=== PATIENT | male | born 1990 | race Two or more races ===

== ENCOUNTER 2020-10-16 09:20 | Emergency (ER) | payer BC ==
--- NOTE | 2020-10-16 10:35 | EDM.PDOC ---
ED HPI GENERAL MEDICAL PROBLEM - General Chief Complaint: Abdominal Pain Stated Complaint: KIDNEY PAIN AND SOB Time Seen by Provider: 10/16/20 10:31 Source of Information: Reports: Patient History Limitations: Reports: No Limitations - History of Present Illness INITIAL COMMENTS - FREE TEXT/NARRATIVE: 29-year-old male presents to the ED with complaints of bilateral flank pain but much worse on the left as compared to the right. No change in color of his urine. He reports it is difficult to get in and out of the vehicle. It is difficult to get in and out of bed. It is difficult to take a full deep breath without muscle spasm occurring. He denies fever or chills. No problems voiding. He does workout with weights in the gym. Last he can remember he was doing shoulder shrugs with dumbbells. He does not do heavy lifting in the work place I works in the [employer]. Cannot think of any repetitive twisting movements as of late. Onset: Gradual Onset Date: 10/14/20 Duration: Day(s):, Constant Location: Reports: Back (Left mid lower back.) Quality: Reports: Ache, Throbbing Severity: Moderate (Worsened by deep breathing and bending forwards.) Improves with: Reports: Rest Worsens with: Reports: Other Context: Reports: Other (Likely related to weight lifting in the gym 2 days prior to development of the back pain). Denies: Activity (Worsens by bending forwards or deep breathing or coughing.), Exercise, Lifting, Sick Contact, Trauma Associated Symptoms: Reports: No Other Symptoms. Denies: Confusion, Chest Pain, Cough, cough w sputum, Diaphoresis, Fever/Chills, Headaches, Loss of Appetite, Malaise, Nausea/Vomiting, Rash, Seizure, Shortness of Breath, Syncope Treatments PAN PULLER: Reports: Acetaminophen Left Flank Pain Score (Numeric/FACES): 8 - Related Data Allergies Allergy/AdvReac Type Severity Reaction Status Date / Time No Known Allergies Allergy Verified 10/16/20 09:31 Home Meds: Home Meds Diclofenac Sodium [Voltaren] 75 mg PO BIDMEALS #10 tab.cr 10/16/20 [Rx] predniSONE 20 mg PO BID #8 tab 10/16/20 [Rx] Past Medical History - Past Health History Medical/Surgical History: Denies Medical/Surgical History Social & Family History - Tobacco Use Tobacco Use Status *Q: Never Tobacco User Second Hand Smoke Exposure: No - Caffeine Use Caffeine Use: Reports: Energy Drinks - Recreational Drug Use Recreational Drug Use: No - Living Situation & Occupation Living situation: Reports: Single Occupation: Employed ED ROS GENERAL - Review of Systems Review Of Systems: See Below Constitutional: Denies: Fever, Chills, Malaise, Weakness, Fatigue HEENT: Reports: No Symptoms Respiratory: Reports: No Symptoms Cardiovascular: Reports: No Symptoms Endocrine: Reports: No Symptoms GI/Abdominal: Reports: No Symptoms : Reports: No Symptoms Musculoskeletal: Reports: Back Pain Skin: Reports: No Symptoms (Left lower back pain brought him to the ED today.) Neurological: Reports: No Symptoms Psychiatric: Reports: No Symptoms Hematologic/Lymphatic: Reports: No Symptoms ED EXAM,LOWER BACK PAIN/INJURY - Physical Exam Exam: See Below Exam Limited By: No Limitations General Appearance: Alert, WD/WN, No Apparent Distress, Other (Temperature is 36.7 degrees. Heart rate 80 and sinus. Respiratory is 20. BP 06/06/1978. Pulse ox 97% room air.) Eye Exam: Bilateral Eye: Normal Inspection Respiratory/Chest: No Respiratory Distress, Lungs Clear, Normal Breath Sounds, No Accessory Muscle Use Cardiovascular: Normal Peripheral Pulses, Regular Rate, Rhythm, No Edema, No Gallop, No Murmur, No Rub GI/Abdominal: Normal Bowel Sounds, Soft, No Organomegaly, No Abnormal Bruit, No Mass, Pelvis Stable, Other (Well muscled abdominal wall.) (Male) Exam: No Hernia Back Exam: Muscle Spasm (Left mid lower back over the distribution of the quadratus lumborum muscle.), Other (Examination of his back reveals pain lateral to the lower thoracic and upper lumbar spine. This is in the distribution of the quadratus lumborum muscle. There is muscle spasm with tenderness to palpation on the left side nothing identified on the right.) Extremities: Normal Inspection, Normal Range of Motion, Non-Tender, No Pedal Edema Neurological: Alert, Normal Mood/Affect, Normal Dorsiflexion, CN II-XII Intact, Normal Plantar Flexion, Normal Gait, Normal Reflexes Psychiatric: Normal Affect, Normal Mood Skin Exam: Warm, Dry, Intact, Normal Color Course - Vital Signs Last Recorded V/S: Last Vital Signs Temp 36.7 C 10/16/20 09:30 Pulse 80 10/16/20 09:30 Resp 20 10/16/20 09:30 BP 130/79 10/16/20 09:30 Pulse Ox 97 10/16/20 09:30 - Radiology Interpretation Free Text/Narrative:: 29-year-old male presents to the ED for evaluation of low back pain. He felt initially both sides but is worse on the left as compared to the right. He states it is made worse by deep breathing. It is made worse by lying down and trying to get back up from the lying down position where is trying to get in and out of a vehicle. 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 Cannot think of any repetitive workload over the last for 5 days that would have caused back strain. He also works out at the gym. Last workout included shoulder shrugs using dumbbells. Examination reveals spasm of the left lateral lower back muscles primarily of the quadratus lumborum muscle. There is no paraspinal muscle spasm no facet joint or rib head subluxation identified. Peers to be a straightforward muscle strain likely from workout in the gym. Treatment at this time is Voltaren 75 mg slow release twice daily for the next 5 days. Prednisone 20 mg twice daily breakfast and supper for 4 days. He may continue to work although with limited pushing pulling lifting and carrying. Departure - Departure Time of Disposition: 10:31 Disposition: Home, Self-Care 01 Condition: Fair Clinical Impression: Strain of muscle, fascia and tendon of lower back, initial encounter - Discharge Information *PRESCRIPTION DRUG MONITORING PROGRAM REVIEWED*: Not Applicable *COPY OF PRESCRIPTION DRUG MONITORING REPORT IN PATIENT TERESSA: Not Applicable Prescriptions: predniSONE 20 mg PO BID #8 tab Diclofenac Sodium [Voltaren] 75 mg PO BIDMEALS #10 tab.cr Instructions: Muscle Strain Referrals: PCP,None [Primary Care Provider] - Forms: ED Department Discharge Additional Instructions: Evaluation in the emergency room this morning in regards to left lower back pain which is made worse by deep breathing. Examination is reveals that the paraspinal muscles are normal with no signs of rib head subluxation or facet joint inflammation in the lower back. Pain and swelling are limited to musculature of the lower back on the left side versus the right. This is called the quadratus lumborum muscle. It is most likely been strained by exercises in the gym likely 2 days before the pain started. Suggest use of Voltaren 75 mg twice daily with breakfast and supper for 5 days to take away the pain and inflammation in the muscle. Prednisone 20 mg twice daily breakfast and supper for 4 days starting this morning to relieve pain and inflammation in the muscle as well. May use Tylenol 650 mg every 6 hours as needed for pain relief. No further exercises as we discussed that would injure this muscle. It would probably take close to 10 days to heal completely before you are capable of full return to gym /weightlifting activities involving the back muscles. Sepsis Event Note (ED) - Evaluation Sepsis Screening Result: No Definite Risk - Focused Exam Vital Signs: Vital Signs Temp Pulse Resp BP Pulse Ox 10/16/20 09:30 36.7 C 80 20 130/79 97
== END 2020-10-16 10:55 | disposition home or self-care (01) ==
LOC: JD.ED 09:20
DX: S39.012A Strain of muscle, fascia and tendon of lower back, initial encounter (principal); X58.XXXA Exposure to other specified factors, initial encounter
CPT/HCPCS: 99283